=== PATIENT | male | born 1985 | race Caucasian/White ===

== ENCOUNTER 2022-11-12 04:29 | Emergency (ER) | payer MEDICAID ==
[~2022-11-12] VITALS: Ht 190.5 cm; Wt 102.1 kg
[2022-11-12 04:40] VITALS: BP 151/104
--- NOTE | 2022-11-12 04:46 | NUR ---
PT TAKEN TO BED 8
--- NOTE | 2022-11-12 04:47 | NUR ---
Dr. Segundo examining patient.
[2022-11-12] MEDS ORDERED: FUROSEMIDE 40 MG/4 ML VIAL IVP ONE (04:55)
--- NOTE | 2022-11-12 05:00 | NUR ---
X-Ray at bedside.
[2022-11-12 05:27] LABS: BASOPHILS # (AUTO) 0.1 K/uL (0.00-0.22); BASOPHILS % (AUTO) 1.2 % (0.0-2.0); EOSINOPHILS # (AUTO) 0.2 K/uL (0-0.4); EOSINOPHILS % (AUTO) 2.4 % (0.0-4.0); HEMATOCRIT 38.5 % (36-52); HEMOGLOBIN 12.8 g/dL (12.0-18.0); LYMPHOCYTES # (AUTO) 1.5 K/uL (2.0-11.5); LYMPHOCYTES % (AUTO) 15.3 % (20.5-51.1); MEAN CORPUSCULAR HEMOGLOBIN 28 pg (27-31); MEAN CORPUSCULAR HGB CONC 33 g/dL (33-37); MONOCYTES # (AUTO) 0.7 K/uL (0.8-1.0); MONOCYTES % (AUTO) 6.8 % (1.7-9.3); NEUTROPHILS # (AUTO) 7.2 K/uL (1.8-7.7); NEUTROPHILS % (AUTO) 74.3 % (42.2-75.2); PLATELET COUNT (AUTO) 203 K/uL (140-450); RED BLOOD CELL COUNT(AUTO) 4.59 MIL/uL (4.20-6.10); RED CELL DISTRIBUTION WIDTH 16.3 % (11.6-13.7); WHITE BLOOD COUNT (AUTO) 9.6 K/uL (4.8-10.8)
[2022-11-12 05:36] LABS: APPEARANCE,URINE CLEAR (CLEAR); BILIRUBIN,URINE NEGATIVE (NEGATIVE); BLOOD, URINE NEGATIVE (NEGATIVE); COLOR,URINE YELLOW (YELLOW); LEUKOCYTE ESTERASE ,URINE NEGATIVE (NEGATIVE); NITRITE, URINE NEGATIVE (NEGATIVE); PH,URINE 6.5 (5.0-9.0); UGLUCOSE NEGATIVE (NEGATIVE)
[2022-11-12 05:39] LABS: ANION GAP 13.8 (8-16); CARBON DIOXIDE 25.1 mmol/L (21-32); CREATININE 1.2 mg/dL (0.6-1.3); POTASSIUM 3.9 mmol/L (3.5-5.1); TOTAL BILIRUBIN 0.6 mg/dL (0.0-1.0)
--- NOTE | 2022-11-12 07:21 | NUR ---
Pt report given to Beverly CORNEJO. Transfer of care at this time.
--- NOTE | 2022-11-12 07:22 | NUR ---
Report recieved from CLEMENTE Adams for transfer of care.
--- NOTE | 2022-11-12 08:29 | NUR ---
WAYNE QUICK AT TO [facility] PT. PT DECIDED TO LEAVE AGAINS MEDICAL ADVICE, RISK OF LEAVING WAS DISCUSSED, BUT PT REFUSED TO STAY, AMA, ADVISEMENT READ AND SIGNED BY PT
[2022-11-12 08:33] VITALS: BP 138/101
--- NOTE | 2022-11-12 08:36 | NUR ---
Patient does not wish to proceed with medical care recommended by DR BLACK. Patient given information related to possible complications, up to and including , which could occur as a result of leaving hospital at this time. Patient verbalizes understanding of risks involved leaving against medical advice. Patient has signed AMA form.
[2022-11-12 09:27] LABS: BARBITURATE, URINE NEGATIVE ng/ml (NEG <=200); BENZODIAZEPINE, URINE NEGATIVE ng/mL (NEG <=200); CANNABINOID, URINE NEGATIVE ng/mL (NEG <=50); COCAINE, URINE NEGATIVE ng/mL (NEG <=300); OPIATE, URINE NEGATIVE ng/mL (NEG <=2000); PHENCYCLIDINE SCREEN,URINE NEGATIVE ng/mL (NEG <=25)
== END 2022-11-12 08:36 | disposition left against medical advice (07) ==
LOC: MED 04:29
DX: I50.9 Heart failure, unspecified (principal); Z20.822 Contact with and (suspected) exposure to COVID-19; I10 Essential (primary) hypertension; F17.210 Nicotine dependence, cigarettes, uncomplicated; Z71.6 Tobacco abuse counseling; Z79.899 Other long term (current) drug therapy
CPT/HCPCS: 36415; 71045; 80053; 80305; 81003; 83880; 85025; 87426; 93005; 96374; 99291; J1940; Q0092

== ENCOUNTER 2022-12-05 21:12 | Emergency (ER) | payer MEDICAID ==
[~2022-12-05] VITALS: Ht 190.5 cm; Wt 108.6 kg
[2022-12-05 21:15] VITALS: BP 127/83; PULSE 100; RESP 17; TEMP 98.1; O2SAT 100
--- NOTE | 2022-12-05 21:15 | NUR ---
TO BED AMBULATORY
--- NOTE | 2022-12-05 21:32 | NUR ---
EKG performed at Physician given copy of EKG for review.
--- NOTE | 2022-12-05 21:34 | NUR ---
X-Ray at bedside.
[2022-12-05 21:47] VITALS: PULSE 112; TEMP 97.1
--- NOTE | 2022-12-05 21:47 | NUR ---
pt was falling asleep and woke up with a start- pt saturation at 86% RA with pt reporting having difficulty of breathing, cold sweats, and reported has not been able to fall asleep. Placed 2L NC on pt. ER MD Olmos made aware- placing orders for patient.
[2022-12-05] MEDS ORDERED: FUROSEMIDE 100 MG/10 ML VIAL IVP ONE (21:50)
[2022-12-05 22:00] LABS: BASOPHILS % (AUTO) 0.4 % (0.0-2.0); EOSINOPHILS # (AUTO) 0.3 K/uL (0-0.4); EOSINOPHILS % (AUTO) 3.7 % (0.0-4.0); HEMATOCRIT 37.7 % (36-52); HEMOGLOBIN 12.5 g/dL (12.0-18.0); LYMPHOCYTES # (AUTO) 1.8 K/uL (2.0-11.5); MEAN CORPUSCULAR HEMOGLOBIN 27 pg (27-31); MEAN CORPUSCULAR HGB CONC 33 g/dL (33-37); MEAN CORPUSCULAR VOLUME 81.7 fL (80-94); MONOCYTES # (AUTO) 0.6 K/uL (0.8-1.0); NEUTROPHILS # (AUTO) 5.3 K/uL (1.8-7.7); NEUTROPHILS % (AUTO) 65.9 % (42.2-75.2); PLATELET COUNT (AUTO) 214 K/uL (140-450); RED BLOOD CELL COUNT(AUTO) 4.61 MIL/uL (4.20-6.10)
[2022-12-05 22:16] LABS: ALBUMIN 3.1 g/dL (3.4-5.0); ANION GAP 14.9 (8-16); CARBON DIOXIDE 23.7 mmol/L (21-32); CREATININE 1.1 mg/dL (0.6-1.3); POTASSIUM 3.6 mmol/L (3.5-5.1); TOTAL BILIRUBIN 0.4 mg/dL (0.0-1.0)
--- NOTE | 2022-12-05 22:18 | NUR ---
placed patient on simple face mask at 8L pt fell asleep and woke up with a start saturation level at 82% RA. pt having difficulty breathing and fatigued. ER MD Olmos made aware.
[2022-12-05 22:19] VITALS: BP 143/89; RESP 22; O2SAT 99
--- NOTE | 2022-12-05 22:21 | NUR ---
Dr. Olmos examining patient.
--- NOTE | 2022-12-05 22:36 | NUR ---
IV removed, catheter intact and site benign. Applied folded 4x4 gauze and tape to stop bleeding.
--- NOTE | 2022-12-05 22:39 | NUR ---
Patient does not wish to proceed with medical care recommended by Dr. Olmos. Patient given information related to possible complications, up to and including , which could occur as a result of leaving hospital at this time. Patient verbalizes understanding of risks involved leaving against medical advice. Patient has signed AMA form.
== END 2022-12-05 22:39 | disposition left against medical advice (07) ==
LOC: MED 21:12
DX: I50.9 Heart failure, unspecified (principal); I21.4 Non-ST elevation (NSTEMI) myocardial infarction; R06.02 Shortness of breath; I11.0 Hypertensive heart disease with heart failure; Z79.899 Other long term (current) drug therapy
CPT/HCPCS: 36415; 71045; 80053; 83880; 84484; 85025; 93005; 96374; 99285; J1940

== ENCOUNTER 2023-01-19 05:20 | Emergency (ER) | payer MEDICAID ==
[~2023-01-19] VITALS: Ht 190.5 cm; Wt 83.0 kg
[~2023-01-19 05:20] MED LIST: FURO-570 PO
[2023-01-19 05:30] VITALS: BP 155/90; PULSE 110; RESP 22; TEMP 97.8; O2SAT 97
[2023-01-19 05:40] VITALS: BP 155/90; PULSE 110; RESP 22; TEMP 97.8; O2SAT 97
[2023-01-19 07:09] LABS: BASOPHILS # (AUTO) 0.1 K/uL (0.00-0.22); BASOPHILS % (AUTO) 1.1 % (0.0-2.0); EOSINOPHILS # (AUTO) 0.3 K/uL (0-0.4); EOSINOPHILS % (AUTO) 2.9 % (0.0-4.0); HEMATOCRIT 42.5 % (36-52); HEMOGLOBIN 13.8 g/dL (12.0-18.0); LYMPHOCYTES # (AUTO) 2.1 K/uL (2.0-11.5); LYMPHOCYTES % (AUTO) 21.6 % (20.5-51.1); MEAN CORPUSCULAR HEMOGLOBIN 27 pg (27-31); MEAN CORPUSCULAR HGB CONC 33 g/dL (33-37); MONOCYTES # (AUTO) 0.6 K/uL (0.8-1.0); NEUTROPHILS # (AUTO) 6.5 K/uL (1.8-7.7); NEUTROPHILS % (AUTO) 68.4 % (42.2-75.2); PLATELET COUNT (AUTO) 196 K/uL (140-450); RED BLOOD CELL COUNT(AUTO) 5.06 MIL/uL (4.20-6.10); RED CELL DISTRIBUTION WIDTH 17.7 % (11.6-13.7); WHITE BLOOD COUNT (AUTO) 9.6 K/uL (4.8-10.8)
[2023-01-19 07:10] LABS: ALBUMIN 3.2 g/dL (3.4-5.0); ANION GAP 16.2 (8-16); CARBON DIOXIDE 20.9 mmol/L (21-32); CREATININE 0.9 mg/dL (0.6-1.3); POTASSIUM 4.1 mmol/L (3.5-5.1); TOTAL BILIRUBIN 0.7 mg/dL (0.0-1.0)
--- NOTE | 2023-01-19 07:15 | NUR ---
PATIENT ELOPED FROM FACILITY. DISCHARGE INSTRUCTIONS NOT GIVEN TO PATIENT. DR. BAILON NOTIFIED.
--- NOTE | 2023-01-19 07:27 | NUR ---
PATIENT ELOPED. CRITICAL LAB TROP 104. MADE AWARE.
== END 2023-01-19 07:27 | disposition left against medical advice (07) ==
LOC: MED 05:20
DX: I50.9 Heart failure, unspecified (principal); I21.4 Non-ST elevation (NSTEMI) myocardial infarction; I11.0 Hypertensive heart disease with heart failure; Z79.899 Other long term (current) drug therapy
CPT/HCPCS: 36415; 71045; 80053; 83880; 84484; 85025; 93005; 99285; Q0092

== ENCOUNTER 2023-01-25 00:14 | Emergency (ER) | payer MEDICAID ==
[~2023-01-25] VITALS: Ht 188 cm; Wt 120.2 kg
[2023-01-25 00:26] VITALS: BP 123/91; PULSE 101; RESP 20; TEMP 98; O2SAT 96
[2023-01-25 01:00] VITALS: O2SAT 100
[2023-01-25] MEDS ORDERED: FUROSEMIDE 40 MG/4 ML VIAL IVP ONE (01:15)
[2023-01-25] MEDS ORDERED: NITROGLYCERIN 0.4 MG TAB SL ONE (01:20)
[2023-01-25 01:35] LABS: BLOOD GAS BASE EXCESS 0.1 mmol/L (-2.0-2.0); BLOOD GAS HCO3 20.6 mmol/L (22-26); BLOOD GAS PCO2 23.5 mmHg (35-45); BLOOD GAS PO2 104.9 mmHg (75-100)
[2023-01-25 01:36] LABS: BLOOD GAS O2 SAT% 98.5 % (92.0-98.5)
[2023-01-25 01:37] LABS: BASOPHILS # (AUTO) 0.1 K/uL (0.00-0.22); EOSINOPHILS # (AUTO) 0.3 K/uL (0-0.4); EOSINOPHILS % (AUTO) 2.5 % (0.0-4.0); HEMOGLOBIN 12.9 g/dL (12.0-18.0); LYMPHOCYTES # (AUTO) 2.4 K/uL (2.0-11.5); LYMPHOCYTES % (AUTO) 20.5 % (20.5-51.1); MEAN CORPUSCULAR HEMOGLOBIN 27 pg (27-31); MEAN CORPUSCULAR HGB CONC 32 g/dL (33-37); MONOCYTES # (AUTO) 0.8 K/uL (0.8-1.0); MONOCYTES % (AUTO) 6.6 % (1.7-9.3); NEUTROPHILS # (AUTO) 8.2 K/uL (1.8-7.7); NEUTROPHILS % (AUTO) 69.4 % (42.2-75.2); PLATELET COUNT (AUTO) 241 K/uL (140-450); RED BLOOD CELL COUNT(AUTO) 4.76 MIL/uL (4.20-6.10); RED CELL DISTRIBUTION WIDTH 17.5 % (11.6-13.7); WHITE BLOOD COUNT (AUTO) 11.9 K/uL (4.8-10.8)
[2023-01-25 01:46] LABS: ALBUMIN 3.2 g/dL (3.4-5.0); ANION GAP 15.6 (8-16); CALCIUM 8.3 mg/dL (8.5-10.1); CARBON DIOXIDE 22.9 mmol/L (21-32); CREATININE 1.3 mg/dL (0.6-1.3); POTASSIUM 3.5 mmol/L (3.5-5.1); TOTAL BILIRUBIN 0.8 mg/dL (0.0-1.0); TOTAL PROTEIN, SERUM 7.4 g/dL (6.4-8.2)
[2023-01-25 02:18] LABS: AMPHETAMINE, URINE POSITIVE ng/ml (NEG <=1000); BARBITURATE, URINE NEGATIVE ng/ml (NEG <=200); BENZODIAZEPINE, URINE POSITIVE ng/mL (NEG <=200); CANNABINOID, URINE POSITIVE ng/mL (NEG <=50); COCAINE, URINE NEGATIVE ng/mL (NEG <=300); PHENCYCLIDINE SCREEN,URINE NEGATIVE ng/mL (NEG <=25)
[2023-01-25 02:19] LABS: OPIATE, URINE NEGATIVE ng/mL (NEG <=2000)
[2023-01-25] MEDS ORDERED: LORazepam 2 MG/ML VIAL ONE (02:34)
[2023-01-25] MEDS ORDERED: LORazepam 2 MG/ML VIAL IVP ONE (02:35)
[2023-01-25] MEDS ORDERED: FURO-570 PO (04:08)
[2023-01-25 04:54] VITALS: BP 123/87; PULSE 103; RESP 21
[2023-01-25 04:59] VITALS: O2SAT 98
== END 2023-01-25 05:45 | disposition home or self-care (01) ==
LOC: MED 00:14
DX: I50.9 Heart failure, unspecified (principal); I11.9 Hypertensive heart disease without heart failure; F15.10 Other stimulant abuse, uncomplicated; Z79.899 Other long term (current) drug therapy
CPT/HCPCS: 36415; 36600; 71045; 80053; 80305; 82803; 83880; 84484; 85025; 93005; 96374; 96375; 99285; J1940; J2060; Q0092

== ENCOUNTER 2023-01-27 02:10 | Emergency (ER) | payer MEDICAID ==
[~2023-01-27] VITALS: Ht 185.4 cm; Wt 99.8 kg
[2023-01-27 02:55] VITALS: BP 138/92; PULSE 87; RESP 22; TEMP 98; O2SAT 99
[2023-01-27] MEDS ORDERED: FUROSEMIDE 40 MG/4 ML VIAL IVP ONE ×2 (03:54→04:05)
[2023-01-27 04:50] VITALS: BP 132/74; PULSE 87; RESP 22; TEMP 98; O2SAT 98
== END 2023-01-27 04:50 | disposition home or self-care (01) ==
LOC: MED 02:10
DX: F15.10 Other stimulant abuse, uncomplicated (principal); I11.0 Hypertensive heart disease with heart failure; I50.9 Heart failure, unspecified; R06.02 Shortness of breath; Z79.899 Other long term (current) drug therapy
CPT/HCPCS: 96374; 99283; J1940

== ENCOUNTER 2023-01-28 17:36 | Inpatient (IN) | payer MEDICAID ==
[~2023-01-28] VITALS: Ht 190.5 cm; Wt 102.1 kg
[2023-01-28 17:45] VITALS: BP 99/72; PULSE 109; RESP 25; TEMP 97.4; O2SAT 90
[2023-01-28 18:29] LABS: BASOPHILS % (AUTO) 0.3 % (0.0-2.0); EOSINOPHILS # (AUTO) 0.5 K/uL (0-0.4); EOSINOPHILS % (AUTO) 5.6 % (0.0-4.0); HEMATOCRIT 38.9 % (36-52); HEMOGLOBIN 12.6 g/dL (12.0-18.0); LYMPHOCYTES # (AUTO) 2.2 K/uL (2.0-11.5); LYMPHOCYTES % (AUTO) 22.5 % (20.5-51.1); MEAN CORPUSCULAR HEMOGLOBIN 27 pg (27-31); MEAN CORPUSCULAR HGB CONC 32 g/dL (33-37); MEAN CORPUSCULAR VOLUME 83.3 fL (80-94); MONOCYTES # (AUTO) 0.9 K/uL (0.8-1.0); MONOCYTES % (AUTO) 9.5 % (1.7-9.3); NEUTROPHILS % (AUTO) 62.1 % (42.2-75.2); PLATELET COUNT (AUTO) 255 K/uL (140-450); RED BLOOD CELL COUNT(AUTO) 4.67 MIL/uL (4.20-6.10); RED CELL DISTRIBUTION WIDTH 17.9 % (11.6-13.7); WHITE BLOOD COUNT (AUTO) 9.6 K/uL (4.8-10.8)
[2023-01-28 18:32] LABS: FLU A ANTIGEN negative (NEGATIVE); FLU B ANTIGEN negative (NEGATIVE)
[2023-01-28 18:47] LABS: ANION GAP 14.3 (8-16); CALCIUM 8.2 mg/dL (8.5-10.1); CARBON DIOXIDE 24.2 mmol/L (21-32); CREATININE 1.4 mg/dL (0.6-1.3); POTASSIUM 3.5 mmol/L (3.5-5.1); TOTAL BILIRUBIN 0.7 mg/dL (0.0-1.0); TOTAL PROTEIN, SERUM 7.3 g/dL (6.4-8.2)
[2023-01-28] MEDS ORDERED: FUROSEMIDE 100 MG/10 ML VIAL IVP STA (19:04)
[2023-01-28] MEDS ORDERED: ASPIRIN 81 MG TAB.CHEW PO ONE (19:05)
[2023-01-28] MEDS ORDERED: ONDANSETRON 4 MG/2 ML VIAL IM/IVP PRN (21:45)
[2023-01-28] MEDS ORDERED: POTASSIUM CHLORIDE 10 MEQ TABER PO PRN (21:45)
[2023-01-28] MEDS ORDERED: ZOLPIDEM 5 MG TAB PO PRN (21:45)
[2023-01-28] MEDS ORDERED: HYDROcodone/APAP 7.5/325 MG 1 TAB PO PRN (21:45)
[2023-01-28] MEDS ORDERED: guaiFENesin DM 200/20 MG-10 ML 10 ML UDC PO PRN (21:45)
[2023-01-28] MEDS ORDERED: ACETAMINOPHEN 325 MG TAB PO PRN (21:45)
[2023-01-28] MEDS ORDERED: DOCUSATE SODIUM 100 MG GELCAP PO PRN (21:45)
[2023-01-28 22:20] VITALS: BP 128/99; PULSE 53; RESP 20; O2SAT 99
[2023-01-28 22:25] LABS: INR 1.24 (0.8-1.2); PARTIAL THROMBOPLASTIN TIME 28.9 secs (22-35.6); PROTHROMBIN TIME 12.9 secs (10.8-13.4)
[2023-01-28 22:33] LABS: CHOL/HDL RATIO 4.1 (1-4.5); FREE T4 (FREE THYROXINE) 0.85 ng/dL (0.76-1.46); MAGNESIUM 2.1 mg/dL (1.8-2.4); PHOSPHORUS 4.5 mg/dL (2.5-4.9); THYROID STIMULATING HORMONE 3.05 uIU/mL (0.34-3.74)
[2023-01-29] MEDS ORDERED: FUROSEMIDE 20 MG/2 ML VIAL IVP SCH (09:00)
[2023-01-29] MEDS ORDERED: PANTOPRAZOLE 40 MG TABEC PO SCH (09:00)
[2023-01-29] MEDS ORDERED: METOPROLOL 25 MG TAB PO SCH (09:00)
[2023-01-30 08:06] LABS: T4 (THYROXINE) 4.9 ug/dL (4.5-12.0)
[2023-01-30 09:08] LABS: HEMOGLOBIN A1C 6.3 % (4.8-5.6)
== END 2023-01-28 22:40 | disposition left against medical advice (07) | DRG 194 ==
LOC: MED 17:36 → MTU 20:56
PROVIDERS: ADMIT Family Medicine; ATTEND Family Medicine
DX: I11.0 Hypertensive heart disease with heart failure (principal); E44.1 Mild protein-calorie malnutrition; E83.51 Hypocalcemia; I50.9 Heart failure, unspecified; Z20.822 Contact with and (suspected) exposure to COVID-19
CPT/HCPCS: 36415; 71045; 80053; 82150; 83036; 83690; 83735; 83880; 84100; 84436; 84439; 84443; 84479; 84484; 85025; 85610; 85730; 93005; 96374; 99285; J1940; Q0092

== ENCOUNTER 2023-02-08 04:15 | Emergency (ER) | payer MEDICAID ==
[~2023-02-08] VITALS: Ht 188 cm; Wt 115.7 kg
[2023-02-08 04:21] VITALS: BP 108/79; PULSE 110; RESP 22; TEMP 96.7; O2SAT 98
[2023-02-08 06:36] VITALS: BP 112/81; PULSE 101; RESP 22; TEMP 96.7; O2SAT 98
== END 2023-02-08 06:36 | disposition home or self-care (01) ==
LOC: MED 04:15
DX: I50.9 Heart failure, unspecified (principal); I11.0 Hypertensive heart disease with heart failure
CPT/HCPCS: 99281

== ENCOUNTER 2023-02-09 16:22 | Emergency (ER) | payer MEDICAID ==
[~2023-02-09] VITALS: Ht 188 cm; Wt 109.8 kg
[2023-02-09 16:25] VITALS: BP 137/77; PULSE 104; RESP 14; TEMP 97.8; O2SAT 97
[2023-02-09] MEDS ORDERED: FUROSEMIDE 40 MG TAB PO ONE (18:00)
[2023-02-09] MEDS ORDERED: FUROSEMIDE 40 MG/4 ML VIAL IVP ONE ×2 (18:32→18:35)
== END 2023-02-09 18:52 | disposition home or self-care (01) ==
LOC: MED 16:22
DX: R06.02 Shortness of breath (principal); I11.9 Hypertensive heart disease without heart failure; Z79.899 Other long term (current) drug therapy
CPT/HCPCS: 71045; 96374; 99283; J1940